=== PATIENT | female | born 1950 | race Caucasian/White ===

== ENCOUNTER 2017-03-19 13:52 | Observation (INO) ==
[2017-03-19 14:27] LABS: Basophils # 0.1 10*3/uL (0.0-0.2); Basophils % 0.6 % (0.0-0.8); Eosinophils # 0.2 10*3/uL (0.0-0.87); Eosinophils % 2.3 % (0.00-10.9); Hematocrit 40.1 VOL% (35.7-47.0); Hemoglobin 13.3 GM/DL (12.0-16.0); Immature Granulocytes % 0.3 %; Immature Granulocytes Absolute 0.03 #; Lymphocytes # 4.3 10*3/uL (1.4-4.0); Lymphocytes % 47.4 % (21.3-54.2); Mean Corpuscular HGB Conc 33.2 GM/DL (32-36); Mean Corpuscular Hemoglobin 32 PG (27-34); Monocytes # 0.9 10*3/uL (0.11-0.8); Neutrophils # 3.5 10*3/uL (1.4-7.4); Neutrophils % 39.4 % (38.7-73.9); Platelet Count 246 T/CUMM (130-400); Red Blood Count 4.22 MC/CUMM (3.8-5.5)
[2017-03-19 14:38] LABS: PT Patient Result 10.7 SECS
[2017-03-19 14:54] LABS: Alanine Aminotransferase 67 U/L (13-56); Albumin 3.9 G/DL (3.4-5.0); Alkaline Phosphatase 66 U/L (45-117); Aspartate Amino Transferase 65 U/L (0-37); Blood Urea Nitrogen 11 MG/DL (7-18); Calcium 9.5 MG/DL (8.5-10.1); Glucose 100 MG/DL (74-106); Osmolality,Calculated 279.3 MOS/KG (273-304); Potassium 3.7 MMOL/L (3.5-5.1); Sodium 141 MMOL/L (136-145); Troponin I Only < 0.015 NG/ML (0.00-0.045)
[2017-03-19] MEDS ORDERED: NITROGLYCERIN 2% OINT 1 INCH/GM PACK TOP STA (18:48)
[2017-03-19] MEDS ORDERED: ASPIRIN 325 MG TABLET PO STA (18:48)
[2017-03-19] MEDS ORDERED: ONDANSETRON 4 MG/2 ML VIAL IV STA (18:48)
[2017-03-19] MEDS ORDERED: MORPHINE 2 MG/1 ML SYRINGE IV STA (18:48)
[2017-03-19] MEDS ORDERED: ALUM/MAG/SIMETH/LIDO VISC 1:1 30 ML BOTTLE PO STA (18:48)
[2017-03-19] MEDS ORDERED: NITROGLYCERIN 2% OINT 1 INCH/GM PACK TOP ONE (19:36)
[2017-03-19] MEDS ORDERED: ONDANSETRON 4 MG/2 ML VIAL ONE (19:36)
[2017-03-19] MEDS ORDERED: ASPIRIN 325 MG TABLET ONE (19:37)
[2017-03-19] MEDS ORDERED: ALUM/MAG/SIMETH/LIDO VISC 1:1 30 ML BOTTLE PO ONE (19:37)
[2017-03-19] MEDS ORDERED: MORPHINE 2 MG/1 ML SYRINGE ONE (19:39)
[2017-03-19] MEDS ORDERED: ZALEPLON 5 MG CAPSULE PO PRN (20:22)
[2017-03-19] MEDS ORDERED: ACETAMINOPHEN 325 MG TABLET PO PRN (20:22)
[2017-03-19] MEDS ORDERED: ONDANSETRON 4 MG/2 ML VIAL IV PRN (20:22)
[2017-03-19] MEDS ORDERED: MORPHINE 10 MG/1 ML VIAL IV PRN (20:22)
[2017-03-19] MEDS ORDERED: oxyCODONE IR 5 MG TABLET PO PRN (20:25)
[2017-03-19] MEDS ORDERED: ENOXAPARIN 40 MG/0.4 ML SYRINGE SUBCUT SCH (20:30)
[2017-03-19] MEDS ORDERED: SIMVASTATIN 20 MG TABLET PO SCH (21:00)
[2017-03-19] MEDS ORDERED: ASPIRIN EC 81 MG TABLET PO SCH (21:00)
[2017-03-19] MEDS: PRAMIPEXOLE 0.25 MG TABLET PO SCH (23:22)
[2017-03-19] MEDS: MESALAMINE 800 MG TABLET PO SCH (23:34)
[2017-03-20 01:34] LABS: Basophils # 0.1 10*3/uL (0.0-0.2); Basophils % 0.7 % (0.0-0.8); Eosinophils # 0.2 10*3/uL (0.0-0.87); Hematocrit 38.3 VOL% (35.7-47.0); Hemoglobin 12.5 GM/DL (12.0-16.0); Immature Granulocytes % 0.1 %; Immature Granulocytes Absolute 0.01 #; Lymphocytes # 3.7 10*3/uL (1.4-4.0); Mean Corpuscular HGB Conc 32.6 GM/DL (32-36); Mean Corpuscular Hemoglobin 31 PG (27-34); Mean Platelet Volume 11.3 FL (9.6-12.0); Monocytes # 0.7 10*3/uL (0.11-0.8); Monocytes % 9.9 % (1.7-12.7); Neutrophils # 2.6 10*3/uL (1.4-7.4); Neutrophils % 35.3 % (38.7-73.9); Platelet Count 227 T/CUMM (130-400); Red Blood Count 3.99 MC/CUMM (3.8-5.5); White Blood Count 7.3 T/CUMM (4-12)
[2017-03-20 01:57] LABS: Band Neutrophils 5 % (0-10); Eosinophils 1 % (0-10); Lymphocytes 60 % (20-55); Segmented Neutrophils 31 % (50-85); Total Cells Counted 100
[2017-03-20 01:58] LABS: Atypical Lymphocytes Few
[2017-03-20 02:03] LABS: Calcium 8.4 MG/DL (8.5-10.1); Potassium 3.7 MMOL/L (3.5-5.1); Risk Ratio 3.91
[2017-03-20 06:54] LABS: Hepatitis A Ab IgM Quant 0.24 Index; Hepatitis A Ab IgM Result Negative (Negative); Hepatitis B Core IgM Result Negative (Negative); Hepatitis B Surface Ag Quant 0.11 Index; Hepatitis B Surface Ag Result Negative (Negative); Hepatitis C Virus Ab Quant 0.04 Index; Hepatitis C Virus Ab Result Negative (Negative)
[2017-03-20] MEDS ORDERED: CALCIUM (CARBONATE)/VITAMIN D 600 MG-400 UNIT TABLET PO SCH (09:00)
[2017-03-20] MEDS ORDERED: DULoxetine 30 MG CAPSULE PO SCH (09:00)
[2017-03-20] MEDS ORDERED: PANTOPRAZOLE 40 MG TABLET PO SCH (09:00)
[2017-03-20] MEDS: PRAMIPEXOLE 0.25 MG TABLET PO SCH (09:53)
[2017-03-20] MEDS: MESALAMINE 800 MG TABLET PO SCH (10:00)
[2017-03-20 11:58] VITALS: BP 125/82
== END 2017-03-20 14:30 | disposition home or self-care (01) ==
LOC: N.EDINP 13:52 → N.ED 13:52 → N.TELES 21:01
PROVIDERS: ADMIT Family Medicine; ATTEND Family Medicine

== ENCOUNTER 2020-01-22 14:33 | Observation (INO) ==
[2020-01-22] MEDS ORDERED: ONDANSETRON ODT 4 MG TABLET PO STA (15:55)
[2020-01-22 17:08] LABS: Basophils # 0.1 10*3/uL (0.0-0.2); Basophils % 0.7 % (0.0-0.8); Eosinophils # 0.2 10*3/uL (0.0-0.87); Eosinophils % 2.5 % (0.00-10.9); Hematocrit 37.1 VOL% (35.7-47.0); Hemoglobin 12.5 GM/DL (12.0-16.0); Immature Granulocytes % 0.3 %; Immature Granulocytes Absolute 0.02 #; Lymphocytes # 2.8 10*3/uL (1.4-4.0); Lymphocytes % 36.7 % (21.3-54.2); Mean Corpuscular HGB Conc 33.7 GM/DL (32-36); Mean Corpuscular Volume 90.7 FL (87-102); Mean Platelet Volume 10.6 FL (9.6-12.0); Monocytes % 8.7 % (1.7-12.7); Neutrophils % 51.1 % (38.7-73.9); Platelet Count 204 T/CUMM (130-400); Red Blood Count 4.09 MC/CUMM (3.8-5.5); Red Cell Distribution Width 13.5 % (9.3-17.3); White Blood Count 7.5 T/CUMM (4-12)
[2020-01-22 17:45] LABS: Alanine Aminotransferase 53 U/L (13-56); Albumin 3.4 G/DL (3.4-5.0); Alkaline Phosphatase 78 U/L (45-117); Aspartate Amino Transferase 43 U/L (0-37); Blood Urea Nitrogen 14 MG/DL (7-18); Calcium 8.7 MG/DL (8.5-10.1); Estimated Glom Filtration Rate 80 ML/MIN; Glucose 167 MG/DL (74-106); INR 1.1; PT Patient Result 11.5 SECS (9.8-11.9); Partial Thromboplastin Time 28.7 SECS (23.9-33.8)
[2020-01-22 17:46] LABS: Osmolality,Calculated 285.3 MOS/KG (273-304)
[2020-01-22 18:44] LABS: Calcium 8.5 MG/DL (8.5-10.1); Osmolality,Calculated 284.1 MOS/KG (273-304)
[2020-01-22] MEDS ORDERED: Zolmitriptan [Zomig] 5 MG PO PRN (22:08)
[2020-01-22] MEDS ORDERED: HYDROmorphone 2 MG/1 ML VIAL IV PRN (22:08)
[2020-01-22] MEDS ORDERED: DEXTROSE 50% 25 GM/50 ML VIAL IV PRN (22:11)
[2020-01-22] MEDS ORDERED: DOCUSATE SODIUM 100 MG CAPSULE PO PRN (22:11)
[2020-01-22] MEDS ORDERED: GLUCAGON 1 MG VIAL IM PRN (22:11)
[2020-01-22] MEDS ORDERED: POTASSIUM CHLORIDE 20 MEQ TABLET PO PRN (22:19)
[2020-01-22] MEDS ORDERED: ENOXAPARIN 40 MG/0.4 ML SYRINGE SUBCUT SCH (22:30)
[2020-01-22] MEDS ORDERED: POTASSIUM CHLORIDE 20 MEQ TABLET PO ONE (22:30)
[2020-01-22] MEDS: traZODone 50 MG TABLET PO SCH (22:40)
[2020-01-22] MEDS: PANTOPRAZOLE 40 MG TABLET PO SCH (22:41)
[2020-01-22] MEDS: PRAMIPEXOLE 0.25 MG TABLET PO SCH (22:42)
[2020-01-22] MEDS: SIMVASTATIN 20 MG TABLET PO SCH (22:43)
[2020-01-22] MEDS: LATANOPROST 0.005% OPH SOLN 2.5 ML BOTTLE BOTH EYES SCH (22:43)
[2020-01-22] MEDS: MESALAMINE 800 MG TABLET PO SCH (22:44)
[2020-01-23] MEDS: ONDANSETRON 4 MG/2 ML VIAL IV PRN ×2 (00:06→16:04)
[2020-01-23 06:00] LABS: Basophils # 0.1 10*3/uL (0.0-0.2); Basophils % 0.5 % (0.0-0.8); Eosinophils # 0.2 10*3/uL (0.0-0.87); Eosinophils % 1.9 % (0.00-10.9); Hematocrit 38.1 VOL% (35.7-47.0); Hemoglobin 12.5 GM/DL (12.0-16.0); Immature Granulocytes % 0.4 %; Immature Granulocytes Absolute 0.04 #; Lymphocytes # 2.9 10*3/uL (1.4-4.0); Lymphocytes % 26.1 % (21.3-54.2); Mean Corpuscular HGB Conc 32.8 GM/DL (32-36); Mean Corpuscular Volume 95.3 FL (87-102); Mean Platelet Volume 11.1 FL (9.6-12.0); Monocytes % 8.5 % (1.7-12.7); Neutrophils % 62.6 % (38.7-73.9); Platelet Count 189 T/CUMM (130-400); Red Cell Distribution Width 13.6 % (9.3-17.3)
[2020-01-23 06:27] LABS: Calcium 8.6 MG/DL (8.5-10.1); Osmolality,Calculated 281.4 MOS/KG (273-304)
[2020-01-23] MEDS ORDERED: ceFAZolin 1,000 MG in SYRINGE 1 EACH IV ONE (07:00)
[2020-01-23] MEDS ORDERED: BACITRACIN OINT 0.9 GM PACK TOP ONE (09:37)
[2020-01-23] MEDS ORDERED: fentaNYL 100 MCG/2 ML VIAL ONE (10:25)
[2020-01-23] MEDS: INSULIN LISPRO 100 UNIT/ML SUBCUT SCH ×4 (11:07→22:26)
[2020-01-23] MEDS ORDERED: ONDANSETRON 4 MG/2 ML VIAL ONE (11:14)
[2020-01-23] MEDS ORDERED: PHENYLEPHRINE 1 MG/10 ML SYRINGE IV ONE (11:14)
[2020-01-23] MEDS ORDERED: propofoL 200 MG/20 ML VIAL IV ONE (11:14)
[2020-01-23] MEDS ORDERED: SEVOFLURANE 1 UNIT/15 MINUTE INH ONE (11:16)
[2020-01-23] MEDS ORDERED: MAGNESIUM HYDROXIDE SUSP 30 ML UDCUP PO PRN (11:24)
[2020-01-23] MEDS ORDERED: MORPHINE 4 MG/1 ML VIAL IV PRN (11:25)
[2020-01-23] MEDS ORDERED: ROPIVACAINE 0.5% 30 ML VIAL ONE (11:32)
[2020-01-23] MEDS ORDERED: ONDANSETRON 4 MG/2 ML VIAL IV PRN (11:57)
[2020-01-23] MEDS ORDERED: HYDROmorphone 2 MG/1 ML VIAL ONE ×2 (12:00→12:01)
[2020-01-23] MEDS: HYDROmorphone 2 MG/1 ML VIAL IV PRN ×2 (12:03→12:13)
[2020-01-23] MEDS: glipiZIDE 10 MG TABLET PO SCH (13:01)
[2020-01-23] MEDS: DULoxetine 30 MG CAPSULE PO SCH (13:01)
[2020-01-23] MEDS: PRAMIPEXOLE 0.25 MG TABLET PO SCH ×2 (13:01→20:27)
[2020-01-23] MEDS: PANTOPRAZOLE 40 MG TABLET PO SCH ×2 (13:01→20:27)
[2020-01-23] MEDS: CALCIUM (CARBONATE)/VITAMIN D 600 MG-400 UNIT TABLET PO SCH (13:02)
[2020-01-23] MEDS: MESALAMINE 800 MG TABLET PO SCH ×3 (13:04→20:26)
[2020-01-23] MEDS: ceFAZolin 1,000 MG in SYRINGE 1 EACH IV SCH (18:02)
[2020-01-23] MEDS: LACTATED RINGERS 1,000 ML IV SCH (19:24)
[2020-01-23] MEDS: traZODone 50 MG TABLET PO SCH (20:27)
[2020-01-23] MEDS: LATANOPROST 0.005% OPH SOLN 2.5 ML BOTTLE BOTH EYES SCH (20:28)
[2020-01-23] MEDS: SIMVASTATIN 20 MG TABLET PO SCH (20:28)
[2020-01-23] MEDS: KETOROLAC 15 MG/1 ML VIAL IV PRN (20:29)
[2020-01-24] MEDS: ceFAZolin 1,000 MG in SYRINGE 1 EACH IV SCH (02:20)
[2020-01-24] MEDS: LACTATED RINGERS 1,000 ML IV SCH ×2 (05:32→16:00)
[2020-01-24] MEDS: FONDAPARINUX 2.5 MG/0.5 ML SYRINGE SUBCUT SCH (06:09)
[2020-01-24 06:48] LABS: Calcium 8.8 MG/DL (8.5-10.1); Osmolality,Calculated 276.5 MOS/KG (273-304)
[2020-01-24 06:51] LABS: Basophils % 0.2 % (0.0-0.8); Eosinophils # 0.1 10*3/uL (0.0-0.87); Eosinophils % 0.4 % (0.00-10.9); Hematocrit 34.3 VOL% (35.7-47.0); Hemoglobin 11.2 GM/DL (12.0-16.0); Immature Granulocytes % 0.3 %; Immature Granulocytes Absolute 0.04 #; Lymphocytes # 2.4 10*3/uL (1.4-4.0); Lymphocytes % 20.2 % (21.3-54.2); Mean Corpuscular HGB Conc 32.7 GM/DL (32-36); Mean Corpuscular Volume 94.2 FL (87-102); Mean Platelet Volume 11.1 FL (9.6-12.0); Monocytes % 7.4 % (1.7-12.7); Neutrophils % 71.5 % (38.7-73.9); Platelet Count 174 T/CUMM (130-400); Red Blood Count 3.64 MC/CUMM (3.8-5.5); Red Cell Distribution Width 13.3 % (9.3-17.3); White Blood Count 12.1 T/CUMM (4-12)
[2020-01-24] MEDS: INSULIN LISPRO 100 UNIT/ML SUBCUT SCH ×4 (08:31→21:15)
[2020-01-24] MEDS: ONDANSETRON 4 MG/2 ML VIAL IV PRN ×2 (08:57→12:37)
[2020-01-24] MEDS: KETOROLAC 15 MG/1 ML VIAL IV PRN ×2 (08:58→22:10)
[2020-01-24] MEDS: glipiZIDE 10 MG TABLET PO SCH (11:03)
[2020-01-24] MEDS: PANTOPRAZOLE 40 MG TABLET PO SCH ×2 (11:04→21:15)
[2020-01-24] MEDS: CALCIUM (CARBONATE)/VITAMIN D 600 MG-400 UNIT TABLET PO SCH (11:04)
[2020-01-24] MEDS: PRAMIPEXOLE 0.25 MG TABLET PO SCH ×2 (11:04→21:14)
[2020-01-24] MEDS: MESALAMINE 800 MG TABLET PO SCH ×3 (11:05→21:13)
[2020-01-24] MEDS: DULoxetine 30 MG CAPSULE PO SCH (11:06)
[2020-01-24] MEDS ORDERED: LORazepam 0.5 MG TABLET PO PRN (13:56)
[2020-01-24] MEDS: traZODone 50 MG TABLET PO SCH (21:14)
[2020-01-24] MEDS: SIMVASTATIN 20 MG TABLET PO SCH (21:15)
[2020-01-24] MEDS: LATANOPROST 0.005% OPH SOLN 2.5 ML BOTTLE BOTH EYES SCH (21:16)
[2020-01-25 05:55] LABS: Basophils % 0.3 % (0.0-0.8); Eosinophils # 0.2 10*3/uL (0.0-0.87); Eosinophils % 3.1 % (0.00-10.9); Hematocrit 33.1 VOL% (35.7-47.0); Hemoglobin 10.9 GM/DL (12.0-16.0); Immature Granulocytes % 0.5 %; Immature Granulocytes Absolute 0.03 #; Lymphocytes # 2.2 10*3/uL (1.4-4.0); Lymphocytes % 33.2 % (21.3-54.2); Mean Corpuscular HGB Conc 32.9 GM/DL (32-36); Mean Corpuscular Volume 93.5 FL (87-102); Monocytes % 11.5 % (1.7-12.7); Neutrophils % 51.4 % (38.7-73.9); Platelet Count 172 T/CUMM (130-400); Red Blood Count 3.54 MC/CUMM (3.8-5.5); White Blood Count 6.5 T/CUMM (4-12)
[2020-01-25 06:13] LABS: Calcium 8.4 MG/DL (8.5-10.1); Osmolality,Calculated 275.4 MOS/KG (273-304)
[2020-01-25] MEDS: FONDAPARINUX 2.5 MG/0.5 ML SYRINGE SUBCUT SCH (06:30)
[2020-01-25] MEDS: INSULIN LISPRO 100 UNIT/ML SUBCUT SCH (07:48)
[2020-01-25] MEDS: CALCIUM (CARBONATE)/VITAMIN D 600 MG-400 UNIT TABLET PO SCH (09:27)
[2020-01-25] MEDS: glipiZIDE 10 MG TABLET PO SCH (09:27)
[2020-01-25] MEDS: PANTOPRAZOLE 40 MG TABLET PO SCH (09:27)
[2020-01-25] MEDS: PRAMIPEXOLE 0.25 MG TABLET PO SCH (09:27)
[2020-01-25] MEDS: DULoxetine 30 MG CAPSULE PO SCH (09:27)
[2020-01-25] MEDS: MESALAMINE 800 MG TABLET PO SCH (09:29)
[2020-01-25] MEDS ORDERED: POTASSIUM CHLORIDE 20 MEQ TABLET PO ONE (10:16)
[2020-01-25 11:24] VITALS: BP 126/72
== END 2020-01-25 13:58 | disposition home or self-care (01) ==
LOC: N.ED 14:33 → N.EDINP 14:33 → N.3E 21:35
PROVIDERS: ADMIT Internal Medicine; ATTEND Internal Medicine